=== PATIENT | male | born 1990 | race Caucasian/White ===

== ENCOUNTER 2016-09-20 08:30 | Emergency (ER) | payer BC, OTHER ==
[~2016-09-20] VITALS: Ht 170.2 cm; Wt 99.8 kg
[2016-09-20] MEDS ORDERED: ALBU8.5H2 INH (08:41)
--- NOTE | 2016-09-20 08:59 | NUR ---
PT WAS EVALUATED BY DR HUBBARD. PT WAS D/C TO HOME. D/C INSTRUCTIONS GIVEN TO THE PT.
[2016-09-20] MEDS ORDERED: MECLIZINE HCL 25 MG TABLET PO ONE (09:00)
[2016-09-20 09:01] VITALS: BP 129/71
[2016-09-20] MEDS ORDERED: MECLIZINE HCL 25 MG TABLET ONE ×2 (09:05)
== END 2016-09-20 09:01 | disposition home or self-care (01) ==
LOC: ER 08:30
DX: H83.09 Labyrinthitis, unspecified ear (principal); J45.909 Unspecified asthma, uncomplicated; R42 Dizziness and giddiness
CPT/HCPCS: A4663; J8597